=== PATIENT | female | born 1960 | race Caucasian/White ===

== ENCOUNTER 2018-06-23 21:50 | Inpatient (IN) | payer OTHER ==
[~2018-06-23] VITALS: Ht 162.6 cm; Wt 54.4 kg
[2018-06-23 22:00] VITALS: BP 132/81
[2018-06-23] MEDS ORDERED: VALIUM5 MG PO (22:02)
[2018-06-23] MEDS ORDERED: OMEPRAZOLE20 M2 PO (22:02)
[2018-06-23] MEDS ORDERED: PHENERGAN 25 MG25 M1 PO (22:02)
[2018-06-23 22:08] LABS: URINE BILIRUBIN NEGATIVE (Negative); URINE BLOOD 2+ (Negative); URINE CLARITY CLEAR; URINE COLOR YELLOW; URINE GLUCOSE-RANDOM NEGATIVE (Negative); URINE KETONES TRACE (Negative); URINE LEUKOCYTES-REFLEX NEGATIVE (Negative); URINE NITRITE-REFLEX NEGATIVE (Negative); URINE PROTEIN NEGATIVE (Negative); URINE SPECIFIC GRAVITY >= 1.030 (1.005-1.030); URINE UROBILINOGEN 0.2 E.U./dl (0.2-1.0)
[2018-06-23 22:14] LABS: CASTS None Seen /LPF (None Seen); CRYSTALS None Seen /LPF (None Seen); SQUAMOUS 0-3 Few /LPF (0-3); URINE RBC 3-10 Few /HPF (0-2)
[2018-06-23 22:15] LABS: BACTERIA-REFLEX None Seen /HPF (None Seen); MUCUS 0-3 Light strn/LPF (None Seen); URINE WBC-REFLEX None Seen /HPF (0-5)
[2018-06-23 23:38] LABS: ABSOLUTE EOSINOPHILS 0.1 thou/uL (0.0-0.7); ABSOLUTE LYMPHOCYTES 1.5 thou/uL (0.8-5.3); ABSOLUTE MONOCYTES 0.9 thou/uL (0.0-1.2); ABSOLUTE NEUTROPHILS 8.1 thou/uL (1.6-8.1); BASOPHILS 0.3 %; EOSINOPHILS 0.6 %; HEMATOCRIT 41.8 % (37.0-47.0); LYMPHOCYTES 14.1 %; MCH 31.3 pg (26.0-34.0); MCHC 33.4 g/dL (28.0-37.0); MCV 93.5 fL (80.0-100.0); MONOCYTES 8.8 %; MPV 9.2 fl. (7.2-11.1); NUCLEATED RBCS 0 /100WBC; PLATELET COUNT* 219 thou/uL (150-400); POLYS 76.2 %; RBC 4.47 mil/uL (4.20-5.00); RDW-CV 13.1 % (10.5-14.5); WBC 10.7 thou/uL (4.0-11.0)
[2018-06-23 23:40] LABS: CALCIUM 9.7 mg/dL (8.5-10.1); CREATININE 1.1 mg/dL (0.6-1.3); POTASSIUM 3.3 mmol/L (3.5-5.1)
[2018-06-23 23:48] VITALS: BP 148/85
[2018-06-23 23:50] LABS: ALBUMIN 4.1 g/dL (3.4-5.0); TOTAL BILIRUBIN 0.7 mg/dL (<0.1-1.0); TOTAL PROTEIN 7.7 g/dL (6.4-8.2)
[2018-06-24 03:55] VITALS: BP 97/64
[2018-06-24 08:54] VITALS: BP 111/67
[2018-06-24 13:57] VITALS: BP 111/67
[2018-06-24 14:06] VITALS: BP 111/67
[2018-06-24] MEDS ORDERED: NORCO 5-325 TA1 EACH PO (14:12)
== END 2018-06-24 14:45 | disposition home or self-care (01) | DRG 694 ==
LOC: M.ERS 21:50 → M.TBA-ER 23:06 → M.ORTHSURG 23:06
PROVIDERS: Emergency Medicine; ADMIT Internal Medicine
DX: N13.2 Hydronephrosis with renal and ureteral calculous obstruction (principal); R31.29 Other microscopic hematuria; E86.0 Dehydration; Z28.21 Immunization not carried out because of patient refusal; Z79.899 Other long term (current) drug therapy